=== PATIENT | female | born 1975 | race Caucasian/White ===

== ENCOUNTER 2017-10-21 08:58 | Emergency (ER) | payer MEDICAID ==
[~2017-10-21] VITALS: Ht 147.3 cm; Wt 53.0 kg
[2017-10-21 10:26] VITALS: BP 109/67
[2017-10-21] MEDS ORDERED: SULF1TAB49 PO (10:30)
[2017-10-21] MEDS ORDERED: CEPH-571 PO (10:30)
== END 2017-10-21 10:50 | disposition home or self-care (01) ==
LOC: ER 08:59
DX: L01.09 Other impetigo (principal); B95.61 Methicillin susceptible Staphylococcus aureus infection as the cause of diseases classified elsewhere; R11.2 Nausea with vomiting, unspecified; R19.7 Diarrhea, unspecified; R61 Generalized hyperhidrosis; F12.90 Cannabis use, unspecified, uncomplicated; F15.90 Other stimulant use, unspecified, uncomplicated; Z86.19 Personal history of other infectious and parasitic diseases; Z56.0 Unemployment, unspecified; Z79.899 Other long term (current) drug therapy
CPT/HCPCS: 99283

== ENCOUNTER 2018-01-17 10:59 | Emergency (ER) | payer MEDICAID ==
[~2018-01-17] VITALS: Ht 147.3 cm; Wt 57.0 kg
[~2018-01-17 10:59] MED LIST: CEPH-571 PO
[2018-01-17 11:03] VITALS: BP 101/56
== END 2018-01-17 13:48 | disposition home or self-care (01) ==
LOC: ER 11:00
DX: S86.811A Strain of other muscle(s) and tendon(s) at lower leg level, right leg, initial encounter (principal); F12.90 Cannabis use, unspecified, uncomplicated; F15.90 Other stimulant use, unspecified, uncomplicated; F17.200 Nicotine dependence, unspecified, uncomplicated; Z59.0 Homelessness; Z98.890 Other specified postprocedural states; Z56.0 Unemployment, unspecified; X58.XXXA Exposure to other specified factors, initial encounter; Y93.89 Activity, other specified; Y92.89 Other specified places as the place of occurrence of the external cause; Y99.8 Other external cause status
CPT/HCPCS: 93971; 99284

== ENCOUNTER 2018-07-06 15:27 | Emergency (ER) | payer MEDICAID ==
[~2018-07-06] VITALS: Ht 147.3 cm; Wt 45.0 kg
[2018-07-06] MEDS ORDERED: acetaminophen 325mg tablet PO STA (16:55)
[2018-07-06] MEDS ORDERED: piperacillin/tazo 3.375gm/50ml 50 ML IV ONE (16:55)
[2018-07-06] MEDS ORDERED: normal saline 1000ML IV soln IV ONE (16:55)
[2018-07-06 16:58] LABS: BASOPHILS # (AUTO) 0.1 X10'3 (0-0.2); BASOPHILS % (AUTO) 0.6 % (0-1); EOSINOPHILS # (AUTO) 0.2 X10'3 (0-0.9); HEMATOCRIT 35.5 % (35.0-45.0); HEMOGLOBIN 11.7 g/dl (12.0-16.0); LYMPHOCYTES # (AUTO) 1.6 X10'3 (1.1-4.8); LYMPHOCYTES % (AUTO) 10.2 % (21-51); MEAN CORPUSCULAR HEMOGLOBIN 28.2 PG (27.0-31.0); MEAN CORPUSCULAR HGB CONC 32.9 g/dL (33.0-36.5); MEAN CORPUSCULAR VOLUME 85.7 FL (78-98); MEAN PLATELET VOLUME 6.9 FL (7.4-10.4); MONOCYTES # (AUTO) 0.7 X10'3 (0-0.9); MONOCYTES % (AUTO) 4.4 % (2-12); NEUTROPHILS # (AUTO) 12.8 X10'3 (1.8-7.7); NEUTROPHILS % (AUTO) 83.8 % (42-75); PLATELET COUNT 431 X10'3 (140-440); RED BLOOD COUNT 4.15 X10'6 (4.20-5.60); RED CELL DISTRIBUTION WIDTH 15.2 % (11.5-14.5); WHITE BLOOD COUNT 15.3 X10'3 (4.5-11.0)
[2018-07-06] MEDS ORDERED: LIDOcaine 1% w/epiNEPHrine 1:200,000 30ml vial IM ONE (17:20)
[2018-07-06] MEDS ORDERED: TETanus/Pertussis (Acell)/Diphther VAC/PF (Tdap-Adult) 0.5ml syringe IM ONE (17:20)
[2018-07-06 17:21] LABS: ALANINE AMINOTRANSFERASE 23 U/L (12-78); ALBUMIN 3.6 G/DL (3.4-5.0); ALBUMIN/GLOBULIN RATIO 0.9 (1.1-1.5); ALKALINE PHOSPHATASE 105 IU/L (46-116); ANION GAP 8 (8-16); ASPARTATE AMINO TRANSFERASE 14 U/L (10-37); BILIRUBIN,TOTAL 0.4 MG/DL (0.1-1.0); BLOOD UREA NITROGEN 16 MG/DL (7-18); BUN/CREATININE RATIO 21.9 (6.6-38.0); CALCIUM 8.6 MG/DL (8.5-10.1); CHLORIDE 101 MMOL/L (99-107); CREATININE 0.73 MG/DL (0.40-0.90); GLUCOSE 92 MG/DL (70-104); POTASSIUM 3.9 MMOL/L (3.5-5.1); SODIUM 135 MMOL/L (135-145); TOTAL CARBON DIOXIDE 25.6 MMOL/L (24-32); TOTAL PROTEIN 7.7 G/DL (6.4-8.2); eGFR 87 ML/MIN
[2018-07-06 17:23] LABS: PARTIAL THROMBOPLASTIN TIME 27 SECONDS (22-32)
--- NOTE | 2018-07-06 17:30 | NUR ---
pt is receiving 1st liter NS, resting quietly on bed, resp even and unlabored
[2018-07-06] MEDS ORDERED: sulfamethoxazole/trimethoprim DS (800/160mg) tablet PO ONE (18:15)
[2018-07-06] MEDS ORDERED: cephalexin 250mg capsule PO ONE (18:15)
[2018-07-06] MEDS ORDERED: SULF1TAB49 PO (18:16)
[2018-07-06] MEDS ORDERED: CEPH-572 PO (18:16)
--- NOTE | 2018-07-06 18:20 | NUR ---
PT ACCIDENTLY PULLED IV OUT, HAS RECEIVED IV ANTIBIOTIC AND 500ML OF NS, Quynh REYNA AWARE
[2018-07-06 18:43] VITALS: BP 108/55
== END 2018-07-06 19:12 | disposition home or self-care (01) ==
LOC: ER 15:27
DX: L02.414 Cutaneous abscess of left upper limb (principal); F12.90 Cannabis use, unspecified, uncomplicated; F15.90 Other stimulant use, unspecified, uncomplicated; Z56.0 Unemployment, unspecified; Z98.890 Other specified postprocedural states; Z86.19 Personal history of other infectious and parasitic diseases; Z88.5 Allergy status to narcotic agent
CPT/HCPCS: 10060; 36415; 71046; 80053; 83605; 84145; 85025; 85610; 85730; 87040; 90471; 90715; 96365; 99284; J2543; J3490; J7030

== ENCOUNTER 2018-07-13 00:17 | Emergency (ER) | payer MEDICAID ==
[~2018-07-13] VITALS: Ht 147.3 cm; Wt 45.0 kg
[~2018-07-13 00:17] MED LIST changes: +CEPH-572 PO; +SULF1TAB49 PO
[2018-07-13] MEDS ORDERED: ONDA8TAB6 PO (00:59)
[2018-07-13] MEDS ORDERED: ondansetron 4mg rapidly disintigrating tab PO ONE (01:00)
[2018-07-13 01:13] VITALS: BP 115/67
== END 2018-07-13 01:18 | disposition home or self-care (01) ==
LOC: ER 00:18
DX: L02.414 Cutaneous abscess of left upper limb (principal); F12.90 Cannabis use, unspecified, uncomplicated; F15.90 Other stimulant use, unspecified, uncomplicated; Z48.00 Encounter for change or removal of nonsurgical wound dressing; Z86.19 Personal history of other infectious and parasitic diseases; Z98.890 Other specified postprocedural states; Z56.0 Unemployment, unspecified; Z79.899 Other long term (current) drug therapy
CPT/HCPCS: 99283

== ENCOUNTER 2018-12-17 20:54 | Emergency (ER) | payer MEDICAID ==
[~2018-12-17] VITALS: Ht 162.6 cm; Wt 50.7 kg
[~2018-12-17 20:54] MED LIST changes: -CEPH-572 PO; +ONDA8TAB6 PO; -SULF1TAB49 PO
[2018-12-17] MEDS ORDERED: proparacaine 0.5% ophthalmic drops 15ml EACHEYE ONE (22:55)
[2018-12-17] MEDS ORDERED: polymyxin B sulf/tmp ophth drops 10ml LEFTEYE STA (23:18)
[2018-12-17] MEDS ORDERED: moxifloxacin 0.5% ophthalmic drops 3ml LEFTEYE STA (23:18)
[2018-12-17] MEDS ORDERED: prednisoLONE acetate 1% ophth susp 5ml EACHEYE STA (23:18)
[2018-12-17] MEDS ORDERED: cyclopentolate 1% 2ml ophthalmic solution EACHEYE ONE (23:20)
[2018-12-17] MEDS ORDERED: HYDR-3965 PO (23:26)
[2018-12-18 00:13] VITALS: BP 96/53
== END 2018-12-18 00:24 | disposition home or self-care (01) ==
LOC: ER 20:54
DX: H16.002 Unspecified corneal ulcer, left eye (principal); F12.90 Cannabis use, unspecified, uncomplicated; F15.90 Other stimulant use, unspecified, uncomplicated; Z98.890 Other specified postprocedural states; Z86.19 Personal history of other infectious and parasitic diseases; Z79.899 Other long term (current) drug therapy; Z56.0 Unemployment, unspecified; Z59.0 Homelessness
CPT/HCPCS: 99284

== ENCOUNTER 2019-12-07 02:47 | Emergency (ER) | payer MEDICAID ==
[~2019-12-07] VITALS: Ht 147.3 cm; Wt 46.4 kg
[2019-12-07] MEDS ORDERED: SULF1TAB49 PO (02:59)
[2019-12-07] MEDS ORDERED: sulfamethoxazole/trimethoprim DS (800/160mg) tablet PO ONE (03:00)
[2019-12-07 03:22] VITALS: BP 113/65
== END 2019-12-07 03:24 | disposition home or self-care (01) ==
LOC: ER 02:47
DX: L03.115 Cellulitis of right lower limb (principal); Z86.19 Personal history of other infectious and parasitic diseases; F12.90 Cannabis use, unspecified, uncomplicated; F15.90 Other stimulant use, unspecified, uncomplicated; Z98.890 Other specified postprocedural states; Z59.0 Homelessness; Z56.0 Unemployment, unspecified; Z79.2 Long term (current) use of antibiotics; Z79.899 Other long term (current) drug therapy
CPT/HCPCS: 99283

== ENCOUNTER 2021-06-10 10:12 | Emergency (ER) | payer MEDICAID ==
[~2021-06-10] VITALS: Ht 147.3 cm; Wt 53.0 kg
[2021-06-10 10:26] VITALS: BP 122/68
[2021-06-10] MEDS ORDERED: ondansetron 4mg rapidly disintigrating tab PO ONE (10:55)
--- NOTE | 2021-06-10 11:14 | NUR ---
PO MED GIVEN
== END 2021-06-10 11:16 | disposition home or self-care (01) ==
LOC: ER 10:12
DX: S09.90XA Unspecified injury of head, initial encounter (principal); F32.A Depression, unspecified; R11.10 Vomiting, unspecified; R44.1 Visual hallucinations; F17.200 Nicotine dependence, unspecified, uncomplicated; F12.90 Cannabis use, unspecified, uncomplicated; F15.90 Other stimulant use, unspecified, uncomplicated; Z86.19 Personal history of other infectious and parasitic diseases; Z56.0 Unemployment, unspecified; Z59.00 Homelessness unspecified; Z79.2 Long term (current) use of antibiotics; Z79.899 Other long term (current) drug therapy; X58.XXXA Exposure to other specified factors, initial encounter; Y93.89 Activity, other specified; Y92.89 Other specified places as the place of occurrence of the external cause; Y99.8 Other external cause status
CPT/HCPCS: 99283

== ENCOUNTER 2021-10-17 19:06 | Emergency (ER) | payer MEDICAID ==
[~2021-10-17] VITALS: Ht 147.3 cm; Wt 43.2 kg
[2021-10-17 19:16] VITALS: BP 105/60
--- NOTE | 2021-10-17 19:36 | NUR ---
NO ANSWER NOT IN LOBBY. 1934
== END 2021-10-17 21:29 | disposition home or self-care (01) ==
LOC: ER 19:07
DX: S96.911A Strain of unspecified muscle and tendon at ankle and foot level, right foot, initial encounter (principal); F32.A Depression, unspecified; J45.909 Unspecified asthma, uncomplicated; F12.10 Cannabis abuse, uncomplicated; F15.10 Other stimulant abuse, uncomplicated; Z56.0 Unemployment, unspecified; Z59.00 Homelessness unspecified; Z88.8 Allergy status to other drugs, medicaments and biological substances; Z79.899 Other long term (current) drug therapy; X58.XXXA Exposure to other specified factors, initial encounter; Y93.89 Activity, other specified; Y92.89 Other specified places as the place of occurrence of the external cause; Y99.8 Other external cause status
CPT/HCPCS: 73630; 99283

== ENCOUNTER 2022-12-21 15:33 | Emergency (ER) | payer MEDICAID ==
[~2022-12-21] VITALS: Ht 147.3 cm; Wt 65.0 kg
[2022-12-21] MEDS ORDERED: SULF1TAB49 PO (18:02)
[2022-12-21] MEDS ORDERED: CEPH-585 PO (18:02)
[2022-12-21] MEDS ORDERED: ketorolac trometh. 30mg/ml inj. IM ONE (18:10)
[2022-12-21 18:20] VITALS: BP 108/66; PULSE 82; RESP 16; TEMP 98.4; O2SAT 97
== END 2022-12-21 18:23 | disposition home or self-care (01) ==
LOC: ER 15:35
DX: L03.116 Cellulitis of left lower limb (principal); J45.909 Unspecified asthma, uncomplicated; F12.10 Cannabis abuse, uncomplicated; F15.10 Other stimulant abuse, uncomplicated; Z98.890 Other specified postprocedural states; Z59.00 Homelessness unspecified; Z56.0 Unemployment, unspecified; Z88.8 Allergy status to other drugs, medicaments and biological substances; Z79.899 Other long term (current) drug therapy
CPT/HCPCS: 96372; 99283; J1885

== ENCOUNTER 2023-03-12 13:41 | Emergency (ER) | payer MEDICAID ==
[~2023-03-12] VITALS: Ht 147.3 cm; Wt 50.9 kg
[~2023-03-12 13:41] MED LIST changes: +CEPH-585 PO
[2023-03-12 13:43] VITALS: BP 127/51; PULSE 106; RESP 18; TEMP 97.8; O2SAT 98
== END 2023-03-12 13:47 | disposition left against medical advice (07) ==
LOC: ER 13:41
DX: R06.02 Shortness of breath (principal); Z53.21 Procedure and treatment not carried out due to patient leaving prior to being seen by health care provider
CPT/HCPCS: 99281

== ENCOUNTER 2023-05-24 15:45 | Emergency (ER) | payer MEDICAID ==
[~2023-05-24] VITALS: Ht 162.6 cm; Wt 54.5 kg
[2023-05-24 15:50] VITALS: BP 105/63; PULSE 90; RESP 18; TEMP 98; O2SAT 99
== END 2023-05-24 18:41 | disposition left against medical advice (07) ==
LOC: ER 15:45
DX: H92.01 Otalgia, right ear (principal); Z53.21 Procedure and treatment not carried out due to patient leaving prior to being seen by health care provider
CPT/HCPCS: 99281

== ENCOUNTER 2023-09-04 20:29 | Emergency (ER) | payer MEDICAID ==
[~2023-09-04] VITALS: Ht 147.3 cm; Wt 54.5 kg
[2023-09-04 20:40] VITALS: BP 103/64; PULSE 78; RESP 18; TEMP 98.1; O2SAT 97
== END 2023-09-04 23:47 | disposition left against medical advice (07) ==
LOC: ER 20:29
DX: L29.9 Pruritus, unspecified (principal); Z53.21 Procedure and treatment not carried out due to patient leaving prior to being seen by health care provider

== ENCOUNTER 2025-02-07 12:33 | Emergency (ER) | payer MEDICAID ==
[~2025-02-07] VITALS: Ht 147.3 cm; Wt 50.9 kg
[~2025-02-07 12:33] MED LIST changes: -CEPH-585 PO
[2025-02-07 12:50] VITALS: TEMP 98.5
--- NOTE | 2025-02-07 13:21 | RADIOLOGY REPORT ---
CHEST RADIOGRAPH Indication: R/O PNEUMONIA, SOB Technique: Single frontal view of the chest was obtained COMPARISON: None FINDINGS: Lines and Tubes: None Lungs: Patchy right infrahilar opacity. Pleura: No effusion. No pneumothorax. Cardiomediastinal contours: Unremarkable Bones: Unremarkable IMPRESSION: Patchy right infrahilar opacity, concerning for pneumonia
[2025-02-07 13:24] LABS: MEAN PLATELET VOLUME 7.6 FL (7.4-10.4); RED CELL DISTRIBUTION WIDTH 14.2 % (11.5-14.5)
[2025-02-07 13:37] LABS: CREATININE 0.77 MG/DL (0.40-0.90); TOTAL CARBON DIOXIDE 29.6 MMOL/L (24-32); eCRCL 56 ML/MIN; eGFR 79 ML/MIN
[2025-02-07] MEDS: normal saline 1000ml 1,000 ML IV ONE (15:03)
[2025-02-07 15:21] VITALS: BP 102/51
[2025-02-07] MEDS: albuterol 2.5 MG/3 ML nebule NEB ONE (15:34)
[2025-02-07 15:35] VITALS: PULSE 76; RESP 20; O2SAT 99
[2025-02-07 15:43] VITALS: PULSE 75; RESP 18; O2SAT 100
[2025-02-07] MEDS: CefTRIAXone/D5W-Rocephin 1gm 50 ML IV ONE (15:49)
[2025-02-07] MEDS ORDERED: DOXY-1 PO (16:31)
--- NOTE | 2025-02-07 16:32 | Physician Documentation ---
History of Present Illness ~ Chief Complaint: Cold, cough & congestion Stated Complaint: CONGESTION Time Seen by MD: 14:50 Primary Medical Doctor: [facility] Mode of Arrival: Ambulatory Medication Reconciliation Allergies: Coded Allergies: cephalexin (Verified Allergy, Unknown, 09/04/23) Uncoded Allergies: OPIATES (Allergy, Unknown, 07/06/18) Scheduled Cephalexin (Keflex), 1 CAP PO Q6H Ondansetron Hcl (Zofran), 1 TAB PO Q8H Past Medical History Past Medical History: Asthma, Hepatitis C, Depression, Panic Disorder Past Surgical History: Alcohol Use: None Drug Use: marijuana, methamphetamine Lives with: S/O Lives In: Homeless Occupation: unemployed Review of Systems ROS As stated above in the HPI, otherwise all systems are reviewed and negative. Physical Exam Vital Signs: Temperature: 98.5, Heart Rate: 75, Respiratory Rate: 18, BP: 102/51, Pulse Oximetry: 100, Weight: 50.910 Oxygen Flow Rate: 0 Physical Exam VITALS: Reviewed and as above. GENERAL: Alert, no apparent distress. HEENT: Normocephalic, atraumatic, PERRL, EOMI, dry mucosa, no erythema RESPIRATORY: Lungs crackles noted in the upper lobes mild inspiratory expiratory wheezes noted on auscultation. CHEST: No accessory muscle use, no retractions CV: Regular rate, rhythm, no edema, no murmur, No: JVD GI: Soft, non-tender, bowels sounds present, no rebound, guarding, or rigidity BACK: No CVA tenderness, or swelling MUSCULOSKELETAL No deformities, no edema SKIN: Warm and dry, no rash NEURO: Oriented x4, No motor or sensory deficit PSYCH: Normal mood and affect, no agitation Progress Results/Orders Results/Orders Orders - HEATHER KENNEDY * Iv Access / Saline Lock * (02/07/25 14:54) * Rt Notification Q1H (02/07/25 15:13) Completed Orders - HEATHER KENNEDY CODING ADVISOR Normal Saline 1000ml (0.9% Sodium Chlori (02/07/25 14:55) Albuterol 2.5mg/3ml Nebule (Proventil 2. (02/07/25 15:15) Ceftriaxone/P1c-Hjqowxgy 1gm (Rocephin 1 (02/07/25 15:20) Medications Received in ER Medications (Trade) Dose Ordered Sig/Ricardo Route PRN Reason Start Time Stop Time Status Last Admin Dose Admin Sodium Chloride 1,000 ml @ 1,000 mls/hr ONCE ONCE IV 02/07/25 14:55 02/07/25 15:54 DC 02/07/25 15:03 1,000 MLS/HR (Proventil 2.5 MG/3ML nebule) 2.5 mg ONCE ONCE NEB 02/07/25 15:15 02/07/25 15:16 DC 02/07/25 15:34 2.5 MG Ceftriaxone Sodium 50 ml @ 100 mls/hr ONCE ONCE IV 02/07/25 15:20 02/07/25 15:49 DC 02/07/25 15:49 100 MLS/HR Vital Signs 02/07/25 02/07/25 02/07/25 02/07/25 12:50 15:04 15:21 15:35 Temp 98.5 Pulse 82 79 76 Resp 16 20 B/P (MAP) 109/55 102/51 (68) Pulse Ox 96 97 99 O2 Delivery Room Air* O2 Flow Rate 0 0 FiO2 21 02/07/25 15:43 Pulse 75 Resp 18 Pulse Ox 100 O2 Delivery Room Air* O2 Flow Rate 0 FiO2 21 Laboratory Tests Test 02/07/25 13:05 White Blood Count 12.4 H Red Blood Count 4.23 Hemoglobin 12.5 Hematocrit 36.8 Mean Corpuscular Volume 86.9 Mean Corpuscular Hemoglobin 29.5 Mean Corpuscular Hemoglobin Concent 34.0 Red Cell Distribution Width 14.2 Platelet Count 328 Mean Platelet Volume 7.6 Neutrophils (%) (Auto) 80.4 H Lymphocytes (%) (Auto) 12.2 L Monocytes (%) (Auto) 5.5 Eosinophils (%) (Auto) 1.5 Basophils (%) (Auto) 0.4 Neutrophils # (Auto) 9.9 H Lymphocytes # (Auto) 1.5 Monocytes # (Auto) 0.7 Eosinophils # (Auto) 0.2 Basophils # (Auto) 0.0 CBC Comment Sodium Level 141 Potassium Level 4.3 Chloride Level 104 Carbon Dioxide Level 29.6 Anion Gap 7 L Blood Urea Nitrogen 13 Creatinine 0.77 Estimated GFR/1.73 m2 79 BUN/Creatinine Ratio 16.9 Glucose Level 113 H Lactic Acid Level 0.7 Calcium Level 8.7 Albumin 3.6 Procalcitonin < 0.05 Chemistry Comments Microbiology Date/Time Source Procedure Growth Status 02/07/25 13:07 Blood Arm Right Blood Culture - Preliminary NEGATIVE (LESS THAN 24 HOURS) Resulted Medical Decision Making Additional information obtaine: other Findings Chief Complaint: Cough, congestion, fever, and chills History of Present Illness: 50-year-old female presenting to the emergency department with several days of cough, congestion, fever, and chills consistent with community-acquired pneumonia. Diagnostic Studies: Chest X-ray demonstrates pneumonia. Emergency Department Course: Patient received intravenous fluid resuscitation, 1 gram intravenous ceftriaxone, and nebulized bronchodilator therapy with good clinical response. Medical Decision-Making: Diagnosis: Community-acquired pneumonia Complexity: This is a moderate complexity case. The patient presented with clinical signs and symptoms of pneumonia confirmed by radiographic findings. Given the patient's age of 50 years, she falls into a category where clinical judgment is particularly important for [id number] decisions, as severity scoring tools may underestimate disease severity in patients 50 years or younger. The patient demonstrated clinical improvement following initial emergency department interventions and meets criteria for safe outpatient management with appropriate oral antibiotic therapy. Risk Stratification: The patient does not meet criteria for hospitalization. She has demonstrated clinical stability following initial treatment, has no documented risk factors for resistant organisms (such as prior MRSA or Pseudomonas aeruginosa isolation, or recent hospitalization with parenteral antibiotic use within 90 days), and has a safe environment for continued care. Treatment Plan: The patient will be discharged on oral antibiotic therapy appropriate for outpatient management of community-acquired pneumonia. For outpatients without comorbidities or risk factors for resistant pathogens, recommended empiric therapy includes amoxicillin, doxycycline, or a macrolide (in areas where pneumococcal resistance to macrolides is less than 25%). For patients with comorbidities, combination therapy with a beta-lactam plus macrolide or monotherapy with a respiratory fluoroquinolone is recommended. The specific antibiotic regimen selected takes into account the patient's clinical presentation and any relevant comorbidities. Treatment duration should be a minimum of 5 days, after which clinical stability should be verified including normal vital signs, normal mentation, and ability to eat. Disposition: Discharge to home Discharge Instructions: Complete full course of prescribed oral antibiotics Rest and maintain adequate hydration Follow up with primary care provider as scheduled Return to emergency department for worsening symptoms, recurrence of fever, increased shortness of breath, chest pain, confusion, inability to tolerate oral intake, or any other concerning symptoms Follow-up: Outpatient follow-up with primary care provider is arranged to reduce likelihood of readmission and ensure appropriate clinical recovery. The patient has been counseled on return precautions and demonstrates understanding of the discharge plan. Prognosis: Good with appropriate antibiotic therapy and outpatient follow-up. Differential Dx:Considerations: Include: Allergic rhinitis, Influenza, Otitis media, Peritonsillar abscess, Pharyngitis-Diphtheria, Pharyngitis-Streptoccal, Pharyngitis-Viral, Pneumonia, Pnuemonitis, Sinusitis, URI, Other Departure Disposition: 01 HOME / SELF CARE / HOMELESS Impression: Primary Impression: Community acquired pneumonia Additional Impression: Upper respiratory infection Condition: Stable Discharge Instructions: Community-Acquired Pneumonia, Adult, [id number], Uppe r Respiratory Infection, Adult Additional Instructions: Your Diagnosis You have been diagnosed with pneumonia (a lung infection). You are being sent home with an antibiotic called doxycycline to treat this infection. How to Take Your Medication Take doxycycline 100 mg by mouth twice a day (once in the morning and once in the evening) Continue taking this medication for 10 days, even if you start feeling better Take each dose with a full glass of water You may take this medication with or without food, but taking it with food may help prevent stomach upset Do not lie down for at least 30 minutes after taking this medication Why You Must Finish All Your Medication It is very important to take all of your antibiotic pills, even when you start feeling better. Stopping your medication early can: Make your infection come back Make the bacteria stronger and harder to treat in the future Cause your pneumonia to get worse What to Expect You should start feeling better within 2-3 days of starting the antibiotic Your cough may last for several weeks, even after the infection is gone You may feel tired for 1-2 weeks as your body heals Possible Side Effects Common side effects of doxycycline include: Upset stomach, nausea, or diarrhea Sensitivity to sunlight (you may sunburn more easily) Mild headache When to Call Your Doctor or Return to the Emergency Department Call your doctor or return to the emergency department right away if you have: Fever that comes back or gets worse Trouble breathing or shortness of breath that gets worse Chest pain Coughing up blood Severe or bloody diarrhea (this can happen even 2 months after finishing antibiotics) Confusion or changes in thinking Unable to eat or drink Severe stomach cramps with fever Any other symptoms that worry you Other Important Information Avoid prolonged sun exposure and use sunscreen (SPF 30 or higher) while taking this medication Doxycycline can make control pills less effective - use backup control methods while taking this antibiotic Do not take antacids, calcium supplements, iron supplements, or multivitamins within 2-3 hours of taking doxycycline, as these can prevent the medication from working properly Drink plenty of fluids (water is best) to help your body fight the infection Get plenty of rest Follow-Up Care Follow up with your primary care doctor as scheduled Your doctor may want to see you to make sure the pneumonia is getting better A follow-up chest X-ray may be needed in 4-6 weeks if you are over 50 years old or have other health problems Questions? If you have any questions about your medication or your condition, please call your doctor's office. Referrals: NO PRIMARY CARE PROVIDER (PCP) Prescriptions Doxycycline Hyclate (Doxycycline Hyclate) 100 Mg Capsule 1 CAP PO Q12H for 10 Days, #20 CAP Prov: HEATHER KENNEDY 02/07/25 Education Educated: Patient Educated regarding: diagnosis, treatment, need for follow up Signature Scribe Signature: A Attestation: Scribed for Heather Kennedy by SANJAY Dalton . 02/07/25 16:31 HEATHER KENNEDY Feb 07, 2025 16:32
== END 2025-02-07 17:07 | disposition home or self-care (01) ==
LOC: ER 12:33
DX: J18.9 Pneumonia, unspecified organism (principal); J06.9 Acute upper respiratory infection, unspecified; F32.A Depression, unspecified; Z88.1 Allergy status to other antibiotic agents; Z86.19 Personal history of other infectious and parasitic diseases; Z79.899 Other long term (current) drug therapy; Z98.890 Other specified postprocedural states; Z56.0 Unemployment, unspecified; Z59.00 Homelessness unspecified
CPT/HCPCS: 36415; 71045; 80048; 83605; 84145; 85025; 87040; 94640; 96361; 96365; 99284; J0696; J7030; 94760